=== PATIENT | female | born 1955 | race Caucasian/White ===

== ENCOUNTER → 2021-07-19 14:32 | Outpatient (BNVA) | payer MEDICARE, SELFPAY | PROVIDERS: PCP Nurse Practitioner Family; Visit Provider Internal Medicine Cardiovascular Disease | DX: I49.3 Ventricular premature depolarization (principal) | CPT/HCPCS: 93005; 99212 ==

== ENCOUNTER → 2022-01-24 10:09 | Outpatient (BNVA) | payer SELFPAY | PROVIDERS: PCP Nurse Practitioner Family; Visit Provider Internal Medicine | DX: Z02.79 Encounter for issue of other medical certificate (principal) ==

== ENCOUNTER → 2023-02-02 09:01 | Outpatient (BNVA) | payer SELFPAY | PROVIDERS: PCP Nurse Practitioner Family; Visit Provider Physician Assistant | DX: Z02.79 Encounter for issue of other medical certificate (principal) ==

== ENCOUNTER → 2024-01-29 13:18 | Outpatient (BNVA) | payer SELFPAY | PROVIDERS: PCP Internal Medicine; Visit Provider Physician Assistant | DX: Z02.79 Encounter for issue of other medical certificate (principal) ==

== ENCOUNTER 2024-07-15 19:15 | Emergency (ER) | payer OTHER, SELFPAY ==
--- NOTE | ~2024-07-15 | CT_ITS ---
EXAMINATION: CT HEAD WITHOUT CONTRAST CLINICAL INFORMATION: Trauma COMPARISON: Head CT on 09/03/2017 TECHNIQUE: Contiguous axial imaging was performed from the skull base to vertex without intravenous administration of contrast. This CT examination was performed using dose optimization techniques as appropriate, variously including the following: *Automated exposure control *Adjustment of mA and/or kV according to patient size (this includes techniques or standardized protocols for targeted exams where dose is matched to indication/reason for exam; i.e. extremities or head) *Use of iterative reconstruction technique DLP: 535 mGy-cm RESULTS: There is no evidence of acute intracranial hemorrhage, acute large vessel infarct, midline shift or mass effect. The luis-white differentiation is preserved. The ventricles and sulci are within normal limits in size and configuration. There is no evidence of hydrocephalus. There are no extraaxial collections. Osseous structures are intact. Paranasal sinuses and mastoid air cells are well aerated. There is a left posterior parietal scalp laceration/contusion. CT/CT head/brain wo IV con IMPRESSION: Left posterior parietal scalp laceration/contusion. No acute intracranial pathology. Electronically signed by: Kallie Farrell MD 07/15/2024 09:07 PM EDT
[2024-07-15 19:44] VITALS: BP 150/64; PULSE 78; RESP 18; TEMP 36.4; O2SAT 97; BMI 18.3
--- NOTE | 2024-07-15 23:34 | PC.NURSE ---
pt from waiting room, assume care of pt at this time
--- NOTE | 2024-07-16 00:32 | ED_ITS ---
HPI - Fall General Chief Complaint: Fall Stated Complaint: fell down in living room hit her head Time Seen by Provider: 07/16/24 00:32 Source: patient Mode of arrival: ambulatory Limitations: no limitations History of Present Illness ED Provider: Dr. Reynold Pringle HPI Narrative: 69-year-old female with a history of anxiety and PVCs who presents emergency department for evaluation of a fall, closed head injury and scalp laceration. The patient states that she was playing with her dog when she lost her balance and fell in her house. She states she struck her head on the corner of a wooden chair which caused her laceration to her scalp. She denied any loss of consciousness. Since the injury occurred she denied headache, nausea, vomiting, numbness or weakness. Patient states she did twist her left leg in his having groin pain. She states she was able to walk but has pain when she walks. She does not know when her last tetanus shot was given. Related Data Home Medications ?Medication ?Instructions ?Recorded ?Confirmed ascorbate calcium (vitamin C) 500 500 mg PO BID 07/19/21 07/19/21 mg tablet magnesium 200 mg tablet 200 mg PO DAILY 07/19/21 07/19/21 sertraline 100 mg tablet 100 mg PO DAILY 07/19/21 07/19/21 Allergies Allergy/AdvReac Type Severity Reaction Status Date / Time morphine [MORPHINE] Allergy Unknown N/V Verified 07/15/24 19:46 Adhesive Bandages Allergy Unknown Unknown Uncoded 07/15/24 19:46 Review of Systems Review of Systems: Yes all other systems are reviewed and are negative [facility] Past Medical History Medical History Generalized anxiety disorder PVCs (premature ventricular contractions) Surgical History Hx of hysterectomy Family History Family History Father No problems noted. Mother Cancer CVD (cardiovascular disease) Social History Social History Smoked in Last 30 Days: No Use of substances other than those prescribed or required for medical reasons: No Advance Directives: No Advance Directives Information Provided: No Do you have a plan to hurt others: No Plan Physical Exam Vital Signs: Vital Signs: Last Vital Signs Temp 97.6 F 07/15/24 19:44 Pulse 78 07/15/24 19:44 Resp 18 07/15/24 19:44 BP 150/64 H 07/15/24 19:44 Pulse Ox 97 07/15/24 19:44 O2 Del Method Room Air 07/15/24 19:44 BMI result Body Mass Index 18.3 Vital signs revealed an elevated blood pressure of 150/64. Exam: General: Awake, alert in no distress Head: Normocephalic, 2.5 cm laceration to the posterior scalp, full skin thickness, not actively bleeding EENT: PERRL, Lids normal, sclera normal, conjunctiva normal, nose normal , ears normal, throat without erythema or exudates Neck: Supple, no adenopathy Chest: symmetric movement, nontender Abdomen: soft, non-tender, nondistended, normal bowel sounds Back: no vertebral tenderness, no CVAT Extremities: no deformities, patient does have tenderness palpation of her left inguinal groin muscles, she has full range of motion, she was able to walk with a limp to the left leg Neuro: Awake, alert, oriented, normal speech, cranial nerves intact, moves all extremities symmetrically Psych: Pleasant, cooperative Procedures Laceration Occipital/parietal 2.5 cm scalp laceration: Site: scalp Side (If applicable): left Description: linear and other (Full skin thickness, not actively bleeding) Depth: simple, single layer Local Anesthetic: lidocaine 1% Amount of anesthesia used (mL): 5 Pre-repair: wound explored Skin layer closed with: other (Stuart) Number of sutures: 9 Medical Decision Making Medical Decision Making [facility] Narrative: 69-year-old female with no significant past medical history who presents emergency department for evaluation of a fall, closed head injury and scalp laceration. She also twisted her left leg in his having pain in her left groin area. Physical examination did reveal a full skin thickness 2.5 cm posterior scalp laceration which will require repair. She also has pain with palpation of the left groin muscles. Differential diagnosis: ?Includes but is not limited to closed head injury, skull fracture, intracranial bleed, scalp laceration, pelvic fracture, hip fracture, muscle sprain of the groin Following evaluation was ordered: CT scan of the head with out contrast Patient was initially treated with the following: Tetanus diptheria and Pertussin intramuscular vaccination Course: 01:09 CT scan of the head revealed no acute fracture. Patient's laceration was repaired with 9 robin. The patient was given Tdap vaccination and discharged home. She was given printed and verbal instructions. The robin will need to be removed in 10-14 days. Admission/Observation Consideration of admission/observation: Escalation of care including admission/observation considered Radiology Impression Discussion of test interpretation with radiology: I have reviewed the radiologist's reading. Radiologist Impression: CT head/brain wo IV con IMPRESSION: Left posterior parietal scalp laceration/contusion. No acute intracranial pathology. Dictated By: Kallie Farrell MD Discharge Plan Discharge Clinical Impression: Fall, Closed head injury, Strain of left inguinal muscle, Laceration of scalp, Strain of left groin Patient Disposition: Home, Self-Care Instructions: Head Injury (ED), Laceration (ED) Additional Instructions: The CT scan of your head revealed no skull fracture bleeding in the brain which is reassuring. You had a full skin thickness scalp laceration which was closed with 9 robin. The robin need to be removed in 10-14 days. This can be done by your primary care provider, in urgent care or the emergency department. Apply bacitracin twice a day until the robin are removed. For the 1st 24 hours you can take Tylenol (acetaminophen) 500 mg pills, 2 pills every 6 hours as needed for pain . After 24 hours you can also take ibuprofen 200 mg pills, 2 pills every 6 hours as needed for pain. You were given a tetanus, diptheria and Pertussin vaccination (Tdap) in the emergency department. Follow-up with your doctor in 2 days. Please return to the emergency department if your symptoms get worse or if you develop any symptoms that are concerning to you. Prescriptions: No Action ascorbate calcium (vitamin C) 500 mg tablet 500 mg PO BID magnesium 200 mg tablet 200 mg PO DAILY sertraline 100 mg tablet 100 mg PO DAILY Print Language: Lithuanian
[2024-07-16] MEDS: Lidocaine HCl 1 % MPF 5 ML VIAL INFILTRATI ×2 (00:46)
[2024-07-16] MEDS: Diphth,Pertus(ACell),Tet Adult 0.5 ML SYRINGE IM (00:47)
[2024-07-16] MEDS: Bacitracin Oint 0.9 GM PACKET 1 APPL TOPICAL (01:19)
[2024-07-16 01:28] VITALS: BP 135/71; PULSE 88; RESP 16; TEMP 37.3; O2SAT 99
== END 2024-07-16 01:29 | disposition home or self-care (01) ==
PROVIDERS: Emergency Provider Emergency Medicine Emergency Medical Services; PCP Internal Medicine
DX: S01.01XA Laceration without foreign body of scalp, initial encounter (principal); R51.9 Headache, unspecified; M79.605 Pain in left leg; W01.10XA Fall on same level from slipping, tripping and stumbling with subsequent striking against unspecified object, initial encounter; Y93.9 Activity, unspecified; Y92.098 Other place in other non-institutional residence as the place of occurrence of the external cause; Y99.8 Other external cause status; Z23 Encounter for immunization
CPT/HCPCS: 12031; 70450; 90471; 90715; 99284